=== PATIENT | female | born 1955 | race Caucasian/White ===

== ENCOUNTER → 2017-03-28 | Outpatient (REF) | payer MEDICARE, OTHER | LOC: M SFHCWAGY 10:05 | PROVIDERS: ATTEND Nurse Practitioner Family | DX: Z01.419 Encounter for gynecological examination (general) (routine) without abnormal findings (principal); N95.2 Postmenopausal atrophic vaginitis ==

== ENCOUNTER → 2017-03-28 | Outpatient (CLI) | payer MEDICARE, OTHER ==
--- NOTE | 2017-03-28 11:12 | REPMRS ---
Patient History The patient states she had a clinical breast exam in 12 Patient is postmenopausal and had first child at age 31. Family history of pancreatic cancer in father, breast cancer in paternal aunt, and breast cancer in maternal cousin at age 50 or over. [facility] Screen Mammo: March 28, 2017 - Exam #: [id number] Bilateral CC and MLO view(s) were taken. Technologist: Alba Hanson, Technologist Prior study comparison: March 27, 2016, digital woman screen mammo performed at [facility]. February 07, 2015, digital woman screen mammo performed at [facility]. February 04, 2014, digital woman screen mammo performed at [facility]. FINDINGS: The breast tissue is almost entirely fat. There has been no change in the appearance of the mammogram from the prior studies. There is no interval development of dominant mass, architectural distortion, or clustered microcalcification typical of malignancy. ASSESSMENT: BI-RADS/ACR category 1 mammogram. Negative. Recommendation Routine screening mammogram of both breasts in 1 year (for women over age 40). This mammogram was interpreted with the aid of an FDA-approved computer-aided dectection system. Electronically Signed By: Blanco Ledezma MD 03/28/17 1111
== END ==
LOC: M WHC 09:42
PROVIDERS: ATTEND Nurse Practitioner Family
DX: Z01.419 Encounter for gynecological examination (general) (routine) without abnormal findings (principal); Z12.31 Encounter for screening mammogram for malignant neoplasm of breast; Z78.0 Asymptomatic menopausal state; Z65.0 Conviction in civil and criminal proceedings without imprisonment; N95.2 Postmenopausal atrophic vaginitis; Z79.899 Other long term (current) drug therapy; Z12.12 Encounter for screening for malignant neoplasm of rectum
CPT/HCPCS: 82270; G0101; G0123; G0202

== ENCOUNTER → 2018-03-28 | Outpatient (CLI) | payer MEDICARE, OTHER | LOC: M WHC 10:25 | DX: Z12.31 Encounter for screening mammogram for malignant neoplasm of breast (principal); N95.8 Other specified menopausal and perimenopausal disorders; Z78.0 Asymptomatic menopausal state; Z12.4 Encounter for screening for malignant neoplasm of cervix; Z12.12 Encounter for screening for malignant neoplasm of rectum | CPT/HCPCS: 77067; G0123 ==

== ENCOUNTER → 2018-03-28 | Outpatient (REF) | payer MEDICARE, OTHER | LOC: M SFHCWAGY 11:59 | DX: Z12.4 Encounter for screening for malignant neoplasm of cervix (principal) | CPT/HCPCS: G0123 ==

== ENCOUNTER → 2019-04-02 | Outpatient (CLI) | payer MEDICARE, OTHER ==
--- NOTE | 2019-04-02 12:24 | REPMRS ---
Patient History The patient states she had a clinical breast exam in 03/2019. Patient is postmenopausal and had first child at age 31. Family history of breast cancer in paternal aunt, breast cancer at age 50 or over in maternal cousin, pancreatic cancer in father. No Hormone Replacement Therapy 3D TOMOSYNTHESIS WAS PERFORMED. [facility] Woman Screen Mammo: April 02, 2019 - Exam #: [id number] Bilateral CC and MLO view(s) were taken. Technologist: Alba Hanson, Technologist Prior study comparison: March 28, 2018, digital woman screen mammo performed at [facility]. March 28, 2017, digital woman screen mammo performed at [facility]. FINDINGS: There are scattered fibroglandular densities. There has been no change in the appearance of the mammogram from the prior studies. There is a mild amount of residual fibroglandular tissue which is fairly symmetric. There is no interval development of dominant mass, architectural distortion, or clustered microcalcification suggestive of malignancy. Assessment: BI-RADS/ACR category 1 mammogram. Negative Mammogram. Recommendation Routine screening mammogram in 1 year (for women over age 40). This mammogram was interpreted with the aid of an FDA-approved computer-aided dectection system. Electronically Signed By: Omer Buckley MD 04/02/19 [id number]
== END ==
LOC: M WHC 10:39
PROVIDERS: ATTEND Nurse Practitioner Family
DX: Z12.31 Encounter for screening mammogram for malignant neoplasm of breast (principal); Z78.0 Asymptomatic menopausal state
CPT/HCPCS: 77063; 77067; G0463

== ENCOUNTER → 2020-04-06 | Outpatient (CLI) | payer MEDICARE, BC ==
--- NOTE | 2020-04-06 13:15 | REPMRS ---
Patient History The patient states she had a clinical breast exam in March 2020. Family history of breast cancer in paternal aunt, breast cancer at age 50 or over in maternal cousin, pancreatic cancer in father. No Hormone Replacement Therapy Digital Woman Screen Mammo: April 06, 2020 - Exam #: [id number] Bilateral CC and MLO view(s) were taken. Technologist: Antonia López, Technologist Prior study comparison: April 02, 2019, bilateral digital woman screen mammo performed at [facility]. March 28, 2018, digital woman screen mammo performed at [facility]. March 28, 2017, digital woman screen mammo performed at [facility]. FINDINGS: There are scattered fibroglandular densities. The Volpara volumetric breast density category is:B. There has been no change in the appearance of the mammogram from the prior studies. There is a mild amount of scattered fibroglandular density which is fairly symmetric. There is no interval development of dominant mass, architectural distortion, or grouped microcalcification suggestive of malignancy. 3-D tomosynthesis shows no additional findings. Assessment: BI-RADS/ACR category 1 mammogram. Negative Mammogram. Recommendation Routine screening mammogram of both breasts in 1 year (for women over age 40). This patient's Lifetime Breast Cancer Risk is estimated at 12.7 %. This mammogram was interpreted with the aid of an FDA-approved computer-aided dectection system. Electronically Signed By: Blanco Ledezma MD 04/06/20 [id number]
== END ==
LOC: M WHC 11:18
PROVIDERS: ATTEND Nurse Practitioner Family
DX: Z01.419 Encounter for gynecological examination (general) (routine) without abnormal findings (principal); Z12.31 Encounter for screening mammogram for malignant neoplasm of breast; Z80.0 Family history of malignant neoplasm of digestive organs
CPT/HCPCS: 77063; 77067; G0101; G0123

== ENCOUNTER → 2021-04-18 | Outpatient (CLI) | payer MEDICARE, BC ==
--- NOTE | 2021-04-18 13:44 | REPMRS ---
Patient History The patient states she had a clinical breast exam in April 2021. Family history of breast cancer in paternal aunt, breast cancer at age 50 or over in maternal cousin, pancreatic cancer in father. No Hormone Replacement Therapy Tomosynthesis is performed. Volpara breast density is b. [facility] lifetime risk of breast cancer 12.1%. Pt had her covid vaccines in December in her right arm and is unable to remember what type of vaccine or the specific dates. Unable to do bilateral CC casey views due to patients inability to turn head to get her head out of the way. Bilateral 2D CC views obtained. Patient states no breast complaints today. Patient has signed MRS History Sheet. Digital Woman Screen Mammo: April 18, 2021 - Exam #: [id number] Bilateral CC and MLO view(s) were taken. Technologist: RT Samantha Prior study comparison: April 06, 2020, bilateral digital woman screen mammo performed at [facility]. April 02, 2019, bilateral digital woman screen mammo performed at [facility]. FINDINGS: There are scattered fibroglandular densities. There has been no change in the appearance of the mammogram from the prior studies. There is a mild amount of residual fibroglandular tissue which is fairly symmetric. There is no interval development of dominant mass, architectural distortion, or clustered microcalcification suggestive of malignancy. Assessment: BI-RADS/ACR category 1 mammogram. Negative Mammogram. Recommendation Routine screening mammogram in 1 year (for women over age 40). This mammogram was interpreted with the aid of an FDA-approved computer-aided dectection system. Electronically Signed By: Omer Buckley MD 04/18/21 [id number]
== END ==
LOC: M WHC 08:50
PROVIDERS: ATTEND Nurse Practitioner Women's Health
DX: Z01.419 Encounter for gynecological examination (general) (routine) without abnormal findings (principal); Z12.31 Encounter for screening mammogram for malignant neoplasm of breast
CPT/HCPCS: 77063; 77067; G0101

== ENCOUNTER 2022-02-22 06:25 | Day surgery (SDC) | payer MEDICARE, BC ==
[~2022-02-22] VITALS: Ht 175.3 cm; Wt 87.9 kg
[~2022-02-22 06:25] MED LIST: AMIO200T37 PO; ATEN50TA2 PO; ATOR80TA59 PO; BAYE81TA10 PO; CITA20TA7 PO; ELIQ5TAB PO; GLIM4TAB5 PO; LIDOCAINE 1% MDV 20ML VIAL SQ PRN; LISI5TAB11 PO; LR 1,000 ML IV ONE; METF500T13 PO; POTA10CA32 PO; TRAM50TA2 PO; TRUL10IN SC
[2022-02-22] MEDS ORDERED: LIDOCAINE 2% 100MG/5ML SDV (FOR ANES.) As Ordered ONE (06:56)
[2022-02-22] MEDS ORDERED: propofoL 200 MG/20 ML VIAL As Ordered ONE (06:56)
[2022-02-22] MEDS ORDERED: D5W 1,000 ML IV ONE (07:40)
[2022-02-22 08:41] VITALS: BP 135/85
== END 2022-02-22 08:46 | disposition home or self-care (01) ==
LOC: M SDC 06:25
PROVIDERS: ATTEND Internal Medicine Cardiovascular Disease
DX: I48.19 Other persistent atrial fibrillation (principal); E11.9 Type 2 diabetes mellitus without complications; I11.9 Hypertensive heart disease without heart failure; E78.5 Hyperlipidemia, unspecified; J44.9 Chronic obstructive pulmonary disease, unspecified; I25.10 Atherosclerotic heart disease of native coronary artery without angina pectoris; I25.2 Old myocardial infarction; M19.90 Unspecified osteoarthritis, unspecified site; R06.83 Snoring; Z87.891 Personal history of nicotine dependence; Z79.899 Other long term (current) drug therapy; Z79.01 Long term (current) use of anticoagulants; Z79.84 Long term (current) use of oral hypoglycemic drugs; Z79.82 Long term (current) use of aspirin

== ENCOUNTER → 2022-08-07 | Outpatient (CLI) | payer MEDICARE, BC ==
[~2022-08-07] MED LIST changes: -LIDOCAINE 1% MDV 20ML VIAL SQ PRN; -LR 1,000 ML IV ONE
== END ==
LOC: M WHC 13:30
PROVIDERS: ATTEND Internal Medicine
DX: Z12.31 Encounter for screening mammogram for malignant neoplasm of breast (principal); Z13.820 Encounter for screening for osteoporosis; M85.89 Other specified disorders of bone density and structure, multiple sites

== ENCOUNTER → 2022-10-11 | Outpatient (REF) | payer MEDICARE, BC ==
[~2022-10-11] MED LIST changes: -POTA10CA32 PO; +POTA10CA33 PO
== END ==
LOC: M PLALAB 14:22
PROVIDERS: ATTEND Nurse Practitioner Family
DX: Z12.4 Encounter for screening for malignant neoplasm of cervix (principal); N95.2 Postmenopausal atrophic vaginitis

== ENCOUNTER → 2023-05-13 | Outpatient (CLI) | payer MEDICARE, BC ==
[~2023-05-13] MED LIST changes: -POTA10CA33 PO; +POTA10CA60 PO
== END ==
LOC: M SLEEP 20:00
PROVIDERS: ATTEND Nurse Practitioner Family
DX: G47.33 Obstructive sleep apnea (adult) (pediatric) (principal)

== ENCOUNTER → 2023-10-06 | Outpatient (CLI) | payer MEDICARE, BC | LOC: M SLEEP 20:00 | PROVIDERS: ATTEND Nurse Practitioner Family | DX: G47.33 Obstructive sleep apnea (adult) (pediatric) (principal) ==

== ENCOUNTER → 2025-01-19 | Outpatient (CLI) | payer MEDICARE, BC ==
[~2025-01-19] MED LIST changes: -POTA10CA60 PO; +POTA10CA70 PO
== END ==
LOC: M WHC 09:39
PROVIDERS: ATTEND Nurse Practitioner Family
DX: Z12.31 Encounter for screening mammogram for malignant neoplasm of breast (principal); R92.313 Mammographic fatty tissue density, bilateral breasts